=== PATIENT | female | born 1985 | race Caucasian/White ===

== ENCOUNTER 2024-09-11 08:37 | Outpatient (AMB) | payer BC, OTHER, SELFPAY ==
[2024-09-11 09:11] VITALS: BP 133/86; PULSE 97; RESP 18; TEMP 36.2; O2SAT 98
--- NOTE | 2024-09-11 09:11 | GYNCLNT_ITS ---
Vital Signs 09/11/24 09:11 Weight 90.265 kg Weight Measurement Method Standing Scale BP 133/86 H Blood Pressure Source Automatic Cuff Blood Pressure Location Left Upper Arm Position Sitting Respiration 18 Pulse 97 Pulse Source Monitor Temp 97.2 F Temp Source Oral Pulse Oximetry (%) 98 Oxygen Delivery Method Room Air Allergies/Home Meds Allergies & Medications Allergies No Known Allergies Allergy (Verified 09/11/24 09:11) Medication Reconciliation norethindrone 1.5 mg-ethinyl estradiol 30 mcg(21)/iron 75 mg(7) tablet (Loestrin Fe 1.5/30 (28-Day)) 1 tab PO QDAY #84 tabs 09/11/24 [Rx] Intake Visit Data Collection New Patient or Established: New Patient (never been to [facility]) Reason for Visit:: ANNUAL EXAM DUE FOR MAMMOGRAM WELL Seen by Clinical Staff ONLY (RN/MA): No Train Brake Operator Required: No Do You Feel Safe at Home: Yes Authorities Contacted: N/A PCP or OBGYN visit in last 3 months: Yes Hx Now: No Are you currently on any form of Control: No Last menstrual period: 08/15/24 Pain Present Currently: No Pain Scale Used: Schaefer-Meyers/Numerical Pain scale:: 0 Smoking Status Smoking Status: Never smoker 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 1. Little interest or pleasure in doing things: not at all 2. Feeling down, depressed, or hopeless: not at all Total score: 0 PHQ-9 3. Trouble falling or staying asleep, or sleeping too much: Not at all 4. Feeling tired or having little energy: Not at all 5. Poor appetite or overeating: Not at all 6. Feeling bad about yourself - or that you are a failure or have let yourself or your family down: Not at all 7. Trouble concentrating on things, such as reading the newspaper or watching television: Not at all 8. Moving or speaking so slowly that other people could have noticed? - Or the opposite - being so fidgety or restless that you have been moving around a lot more than usual: not at all 9. Thoughts that you would be better off or of hurting yourself in some way: Not at all Total score: 0 If you checked off any problems, how difficult have these problems made it for you to do your work, take care of things at home, or get along with other people?: not difficult at all Source: Developed by Drs. Kun Kennedy, Olga Lidia Morales, Monty Whaley and colleagues, with an educational mallory from [employer]. Depression screen completed yes Social History Living Situation History Marital Status: Lives With: Alone Housing: House Housing Other:: They have an 8-year-old daughter. Works part-time at a [employer] Tobacco History Smoking Status: Never smoker Second Hand Smoke Exposure: No Alcohol History Alcohol Intake: Never Domestic Abuse History Do You Feel Safe at Home: Yes History of Present Illness HPI Narrative The patient is a 39-year-old -0-0-1 who used to see me in [place] who presents for an annual exam. Patient is a little tearful today. She states she is emotional. She is reporting some hot flashes at night and she is quite emotional her cycles however, they are regular monthly they are not painful they are definitely not spacing out. She was looking into possibly taking some [id number] supplements from a company called [employer] something called as Estrovelle. We did discuss the possibility of prescribing low-dose control. Patient's 's had a vasectomy. Patient is a good candidate for low-dose control as she does not smoke and she is not obese. She is willing to try this. I am not sure why she is having so much trouble as far as hot flashes and being emotional. She is very young for this. She stated her mother had a hysterectomy at 35 so she not sure when her mom went through menopause. She is amenable to checking labs. She also needs a referral as she has a frozen shoulder on her left side this has been frozen for 8 months. She states she does not have a primary care to send her to a shoulder surgeon. I recommended Dr. Virgilio Sampson in [place] and I will get this referral going. Her had a vasectomy in November 2023. Besides a hot flashes night sweats and being emotional she has no gynecological complaints at this time. She reminds me with her mammogram she does also need an ultrasound as she has very dense breasts. Menstrual character: normal Gynecologic pain symptoms: Reports none Menopause concerns/symptoms: Reports hot flashes and other (Tearful, very emotional) Other pertinent information: Patient's 's had a vasectomy for contraception Review of Systems Review of Systems Narrative Review of Systems: Patient reports hot flashes, night sweats, and being very on edge and emotional. She denies intermenstrual bleeding. She states her cycles are monthly and not heavy. She denies pelvic pain or incontinence symptoms. She has dense breasts but they are not tender. Genitourinary Genitourinary: Reports hot flashes Exam General General Appearance: alert, in no apparent distress, comfortable, cooperative, healthy appearing, well groomed and other (Tearful in the office today) Neck Neck exam: Present normal inspection, full ROM and trachea midline Chest Chest inspection: Present normal inspection and symmetric chest wall rise Resp Respiratory exam: Present normal lung sounds bilaterally Card Cardiovascular exam: Present regular rate, normal rhythm and normal heart sounds Abdominal Abdominal exam: Present soft and normal bowel sounds External exam: Present normal external exam Speculum exam: Present normal speculum exam and other (+1-2 uterine prolapse +1 cystocele) Bimanual exam: Present normal bimanual exam Extremities Extremities exam: Present normal inspection and full ROM Psych Psychiatric exam: Present normal affect and normal mood Skin Skin exam: Present warm, dry, intact and normal color Office Procedures OB Clinic LOC & Office Proc's Nursing/Assessment Patient Status: Initial/New Patient OB Clinic Nursing Assessment: Medication Reconciliation, Update PMH in EMR and Vital Signs OB Clinic Coordination of Care: Consent,records obtained, informed consent, Education Simp Pt/Fam, Lab and Imaging orders and Staff clarify orders Miscellaneous Interventions: Pelvic/Pap Smear Set up New Patient Charge New Patient Point Assignment: 1094 New Patient Point Charge: PROJECT ENGINEERING DIRECTOR Level 3 ([id number]) In Clinic Procedures Pap Smear: Yes Assessment & Plan Diagnosis / Problem List (1) Encounter for Routine Gynecological Examination: Qualifiers: Gynecological examination findings: abnormal findings ABSENT Qualified Code(s): Z01.419 - Encounter for gynecological examination (general) (routine) without abnormal findings Assessment and Plan: Pap with high risk HPV performed, breast exam done encouraged. Mammogram and breast ultrasound ordered (2) Perimenopausal symptoms: Status: Acute Assessment and Plan: All fasting lab work performed including cholesterol CBC comprehensive metabolic panel thyroid FSH LH and estradiol. Patient is amenable to trying low-dose control and we will try low Loestrin. (3) Frozen shoulder: Status: Acute Qualifiers: Laterality: left Qualified Code(s): M75.02 - Adhesive capsulitis of left shoulder Assessment and Plan: Refer to Dr. Virgilio Sampson (4) Dense breasts: Status: Acute Assessment and Plan: Mammogram and bilateral breast ultrasound ordered for [place]. BOX COVERER HAND: Papsmear Pap Smear Procedure Chaparone in room during procedure?: No Pre-op diagnosis general: Annual screening exam Post-op diagnosis procedure note: Same Procedure Notes:: Pap with cotesting to HPV performed Papsmear completed: yes
== END 2024-09-11 10:00 | disposition home or self-care (01) ==
LOC: HODSOBC 08:37
PROVIDERS: PCP Obstetrics & Gynecology; Referring Provider Obstetrics & Gynecology; Supervising Provider Obstetrics & Gynecology; Visit Provider Obstetrics & Gynecology
DX: Z01.411 Encounter for gynecological examination (general) (routine) with abnormal findings (principal); Z11.51 Encounter for screening for human papillomavirus (HPV); N81.4 Uterovaginal prolapse, unspecified; N95.1 Menopausal and female climacteric states; R23.2 Flushing; M75.02 Adhesive capsulitis of left shoulder; R92.30 Dense breasts, unspecified
CPT/HCPCS: 99203; Q0091; G0463